=== PATIENT | male | born 1960 | race Caucasian/White ===

== ENCOUNTER 2020-12-23 17:08 | Inpatient (IN) | payer OTHER, SELFPAY ==
[2020-12-23] VITALS (9 sets, daily range): BP systolic 115–182; BP diastolic 55–102; PULSE 88–98; RESP 18–22; TEMP 35.7–36.6; O2SAT 94–97; BMI 47.0
--- NOTE | ~2020-12-23 | XR_ITS ---
EXAMINATION: XR chest 2V DATE: 12/23/2020 17:41 INDICATION: Sternal chest pain TECHNIQUE: PA and lateral views of the chest are obtained. COMPARISON: None available FINDINGS: There are minimal opacities of the lung bases. There is no pleural effusion or pneumothorax . The cardiomediastinal silhouette is normal. There is moderate thoracic spondylosis. IMPRESSION: 1. Minimal opacities of the lung bases, consistent with atelectasis versus pneumonia. Reviewed, dictated and finalized at location A. IMPRESSION: 1. Minimal opacities of the lung bases, consistent with atelectasis versus pneu monia.
--- NOTE | 2020-12-23 17:12 | ECG_ITS ---
Measurements Intervals [place] Rate: 90 P: 47 DE: 180 QRS: 68 QRSD: 152 T: -7 QT: 392 QTc: 481 Interpretive Statements SINUS RHYTHM RIGHT BUNDLE BRANCH BLOCK INFERIOR INFARCT, AGE INDETERMINATE ABNORMAL ECG Electronically Signed On 12-23-2020 20:15:08 CDT by Eros Smith D.O.
[2020-12-23 17:33] LABS: Basophils Percent Auto 0.5 % (0.2-1.2); Eosinophils Absolute Auto 0.1 K/mm3 (0-0.3); Eosinophils Percent Auto 0.7 % (0-4.4); Hematocrit 51.1 % (42.0-52.0); Hemoglobin 17.2 g/dL (14.0-18.0); Immature Granulocyte Absolute 0.02 K/mm3 (0.00-0.031); Immature Granulocyte Percent A 0.2 % (0-0.5); Lymphocytes Absolute Auto 1.41 K/mm3 (0.9-3.2); Lymphocytes Percent Auto 16.2 % (18.3-44.2); Mean Corpuscular HGB Conc 33.7 g/dl (32-36); Mean Corpuscular Hemoglobin 29.6 pg (26-34); Mean Platelet Volume 8.9 fl (7.4-10.4); Monocytes Absolute Auto 0.6 K/mm3 (0.1-0.6); Monocytes Percent Auto 6.5 % (2.6-8.5); Neutrophils Absolute Auto 6.6 K/mm3 (1.3-6.7); Neutrophils Percent Auto 75.9 % (45.5-73.1); Platelet Count Result 182 k/mm3 (150-375); Red Blood Count 5.81 M/mm3 (4.6-6.20); Red Cell Distribution Width 12.9 % (11.5-14.5); White Blood Count 8.7 K/mm3 (4.5-10.0)
[2020-12-23 17:47] LABS: INR 0.9; Prothrombin Time 12.2 Seconds (11.1-14.7)
[2020-12-23 17:48] LABS: Partial Thromboplastin Time 27.8 SECONDS (22.3-36.8)
[2020-12-23 17:53] LABS: Anion Gap 11 mmol/L (8-16); Blood Urea Nitrogen 27 mg/dL (9-20); Calcium 9.6 mg/dL (8.4-10.2); Carbon Dioxide 29 mmol/L (22-30); Chloride 98 mmol/L (98-107); Estimated CRCL calculation 67 ml/min; Estimated Glomerular Filt Rate 56; Glucose 157 mg/dL (65-110); Potassium 4.1 mmol/L (3.4-5.0); Sodium 138 mmol/L (137-145)
[2020-12-23 18:09] LABS: Troponin I 0.589 ng/mL (0.000-0.034)
--- NOTE | 2020-12-23 18:37 | ECG_ITS ---
Measurements Intervals [place] Rate: 94 P: 3 WA: 170 QRS: -3 QRSD: 156 T: 78 QT: 391 QTc: 491 Interpretive Statements SINUS RHYTHM RIGHT BUNDLE BRANCH BLOCK HIGH LATERAL INFARCT, AGE INDETERMINATE ABNORMAL ECG Electronically Signed On 12-23-2020 20:15:43 CDT by Eros Smith D.O.
--- NOTE | 2020-12-23 18:45 | ED.CHESTPAIN ---
HPI - Chest Pain General Chief Complaint: Chest Pain Stated Complaint: ELEVATED BP, CHEST PAIN Time Seen by Provider: 12/23/20 18:23 Source: patient History of Present Illness HPI narrative: Patient presents with chest pain and hypertension. Patient ports been previously diagnosed with hypertension was on lisinopril but it made him cough so he stopped taking his medication. Over the past 24 hours he noted a burning sensation in his chest as well as a pounding in his head he took some Tums alleviates his symptoms but they continue return so he came to the ER for evaluation. Reports mild shortness of breath over the past several months no acute changes no shortness of breath over the past 24 hours. He denies any nausea or vomiting denies any lightheadedness Related Data Allergies Allergy/AdvReac Type Severity Reaction Status Date / Time Penicillins Allergy Hives Verified 12/23/20 18:38 Review of Systems Review of Systems: CONSTITUTIONAL: Denies fever, chills, or sweats. EYES: Denies visual changes, redness, or discharge. ENT: Denies rhinorrhea, congestion, sore throat, or otalgia. CARDIOVASCULAR: Denies palpitations, or edema. RESPIRATORY: Denies cough or dyspnea. GASTROINTESTINAL: Denies abdominal pain, nausea, vomiting, or diarrhea. GENITOURINARY: Denies dysuria or hematuria. SKIN: Denies rash or itching. MUSCULOSKELETAL: Denies back pain, joint pain, or myalgia. NEUROLOGIC: Denies headache, numbness, dizziness, or weakness. PSYCHIATRIC: Denies anxiety or depression. All systems reviewed & are unremarkable except as noted in HPI and below Exam Narrative: GENERAL: Well-appearing, well-nourished, and in no acute distress. HEAD: Normocephalic, atraumatic. EYES: PERRLA and EOMI. ENT: Nares clear, no rhinorrhea or epistaxis. Mucous membranes moist. NECK: Supple. No masses. No JVD CHEST: Clear to auscultation. No respiratory distress. No wheezes rales or rhonchi HEART: Regular rate and rhythm. No murmur heard. Normal peripheral pulses. ABDOMEN: Soft, nontender, nondistended, normal active bowel sounds. EXTREMITIES: Normal range of motion. No edema. SKIN: Warm, dry, no rash. NEURO: No focal deficits. Alert and oriented x3. PSYCH: Normal mood and affect. Course Reevaluation(s) Reevaluation #1: Results and plan reviewed with patient. Patient is resting comfortably is currently without pain. Given elevated troponin no priors for comparison is admitted for NSTEMI. Patient comfortable inpatient plan. Date: 12/23/20 Time: 19:11 Vital Signs Vital signs: Vital Signs Temperature 35.7 C L 12/23/20 17:19 Pulse Rate 88 12/23/20 17:19 Respiratory Rate 18 12/23/20 17:19 Blood Pressure 156/102 H 12/23/20 17:19 Pulse Oximetry 97 12/23/20 17:19 Temperature 35.7 C L 12/23/20 17:19 Pulse Rate 97 12/23/20 19:51 Respiratory Rate 20 12/23/20 19:51 Blood Pressure 182/92 H 12/23/20 19:51 Pulse Oximetry 95 12/23/20 19:51 MDM - Chest Pain MDM Narrative Medical decision making narrative: Patient presents with burning sensation in his chest over the past 24 hours. Patient does have a history of hypertension is not on any medications patient is not see a primary care physician regularly. Labs and imaging obtained. EKG showing a right bundle branch block no priors for comparison labs notable for elevated troponin again no priors for comparison. Chest x-ray was clinically unremarkable. Given lab abnormalities patient was admitted for NSTEMI. Heparin was initiated in the ER. Patient reports he took full dose aspirin at home prior to ER evaluation. Lab Data Result diagrams: 12/23/20 17:19 12/23/20 17:19 Labs: Lab Results 12/23/20 12/23/20 12/23/20 Range/Units 17:19 17:19 17:19 WBC 8.7 (4.5-10.0) K/mm3 RBC 5.81 (4.6-6.20) M/mm3 Hgb 17.2 (14.0-18.0) g/dL Hct 51.1 (42.0-52.0) % MCV 88.0 (80-100) fl MCH 29.6 (26-34) pg MCHC 33.7 (32-36) g/dl
[2020-12-23] MEDS: HEPARIN SODIUM 5,000 UNITS/ML VIAL 4000 UNITS IV PUSH (19:04)
[2020-12-23] MEDS: HEPARIN SOD/D5W 100 UNITS/ML 25,000 UNITS/250 ML BAG 10 UNITS IV CONT (19:10)
[2020-12-23 19:19] LABS: INR 0.9; Prothrombin Time 11.8 Seconds (11.1-14.7)
[2020-12-23 19:20] LABS: Partial Thromboplastin Time 27.3 SECONDS (22.3-36.8)
--- NOTE | 2020-12-23 19:47 | PM.IMHP ---
H&P: HPI History of Present Illness Date/Time: 12/23/20 19:47 Chief Complaint: High blood pressure Narrative: This is a 60-year-old male with past medical history significant for tobacco dependence, morbid obesity, hypertension, undiagnosed sleep apnea according to patient has apnea periods at nighttime. Patient presented to the emergency room due to a pounding headache shortness of breath and chest pain initially he thought it was related to indigestion he took Tums then he decided to check his blood pressure and his systolic was in the 200's. Emergency room patient was found to have elevated troponin and he has been started in heparin drip. Patient denies any pounding in his chest, any shortness of breath, cough, sputum production, chills, fevers, rigors, nausea, vomiting, diarrhea, abdominal pain, leg swelling, PND or orthopnea. He quit smoking a few months ago. He used to be on lisinopril but he had cough and was taking off of it. Patient has been admitted for further management, treatment and evaluation. Review of Systems Review of Systems: High blood pressure chest pain and shortness of breath Constitutional: Constitutional: Denies chills, Denies fatigue, Denies fever(s), Denies lethargy, Denies malaise and Denies weakness Eyes: Eyes: Denies change in vision ENT: Denies dysphagia, Denies dizziness, Denies nasal congestion, Denies nasal discharge, Denies nasal obstruction, Denies neck pain and Denies tinnitus Cardiovascular: Cardiovascular: Reports chest pain, Denies chest pain with activity, Denies diaphoresis, Denies edema, Denies irregular heart rhythm, Denies claudication, Denies leg edema, Denies lightheadedness, Denies radiating jaw, neck or arm pain, Denies palpitations, Reports dyspnea, Denies dyspnea on exertion, Denies orthopnea and Reports paroxysmal nocturnal dyspnea Respiratory: Respiratory: Reports cough Gastrointestinal: Gastrointestinal: Denies constipation, Denies dysphagia, Denies dyspepsia, Denies heartburn, Denies diarrhea, Denies nausea and Denies vomiting Genitourinary: Genitourinary: Reports no additional male genitourinary complaints Musculoskeletal: Musculoskeletal: Reports no additional musculoskeletal complaints Integumentary/Breasts: Skin/Breast: Reports system reviewed and no additional complaints, except as docu Neurologic: Reports system reviewed and no additional complaints, except as documented Psychiatric: Psychiatric: Reports no additional psychiatric complaints Endocrine: Endocrine: Reports no additional endocrine complaints Hematologic/Lymphatic: Hematologic/Lymphatic: Reports no additional hematologic/lymphatic complaints Allergic/Immunologic: Allergic/Immunologic: Reports no additional allergic/immunologic complaints [facility] Social History Social History Smoking status: Former smoker Alcohol intake: never Substance use: never Spiritual care concerns: No Meds Home Medications and Allergies Home Medications Medication Instructions Recorded Confirmed Type No Home Medications 12/23/20 12/23/20 History Allergies Allergy/AdvReac Type Severity Reaction Status Date / Time Penicillins Allergy Hives Verified 12/23/20 18:38 Vital Signs Vital Signs - 24 hr 12/23/20 17:19 12/23/20 19:03 Temperature 96.3 F L Pulse Rate 88 93 Respiratory Rate 18 19 Blood Pressure 156/102 H 152/100 H Pulse Oximetry 97 95 Exam Narrative: Patient is laying in gurney Const: General: cooperative, comfortable, no acute distress, well developed, alert, awake, Physically active and other (Well-appearing); No in distress Nutritional Appearance: obese morbidly obese Orientation/consciousness: patient oriented x3 HENMT: Head: normal to inspection, normocephalic and atraumatic Ears: hearing grossly normal bilaterally General nose exam: Normal external nose present Face and sinus: normal facial exam Mouth: Yes Normal or
[2020-12-23 20:48] LABS: Basophils Absolute Auto 0.1 K/mm3 (0.0-0.1); Basophils Percent Auto 0.5 % (0.2-1.2); Eosinophils Absolute Auto 0.1 K/mm3 (0-0.3); Hematocrit 49.9 % (42.0-52.0); Hemoglobin 17.1 g/dL (14.0-18.0); Immature Granulocyte Absolute 0.03 K/mm3 (0.00-0.031); Immature Granulocyte Percent A 0.3 % (0-0.5); Lymphocytes Absolute Auto 1.59 K/mm3 (0.9-3.2); Lymphocytes Percent Auto 16.7 % (18.3-44.2); Mean Corpuscular HGB Conc 34.3 g/dl (32-36); Mean Corpuscular Hemoglobin 30.1 pg (26-34); Mean Corpuscular Volume 87.7 fl (80-100); Mean Platelet Volume 8.9 fl (7.4-10.4); Monocytes Absolute Auto 0.6 K/mm3 (0.1-0.6); Monocytes Percent Auto 6.6 % (2.6-8.5); Neutrophils Absolute Auto 7.1 K/mm3 (1.3-6.7); Neutrophils Percent Auto 74.9 % (45.5-73.1); Platelet Count Result 168 k/mm3 (150-375); Red Blood Count 5.69 M/mm3 (4.6-6.20); Red Cell Distribution Width 12.9 % (11.5-14.5); White Blood Count 9.5 K/mm3 (4.5-10.0)
--- NOTE | 2020-12-23 22:59 | ADMGEN ---
This patient, Martin Faye, was admitted to IMU Room 214-01. Patient/family oriented to hospital policies and general routines including ID bracelet, bed and alarms, visiting hours, pain management, procedures, bathroom and other care routines, personal items, smoking policy, room service/diet, and visiting hours. Information on how to activate the Rapid Response Team has been discussed. Patient/Family are encouraged to report perceived risks to care and to ask questions if they do not understand what they are told or what they should do.
[2020-12-23] MEDS: carvediloL 3.125 MG TABLET PO (23:20)
[2020-12-24] VITALS (25 sets, daily range): BP systolic 116–148; BP diastolic 71–88; PULSE 75–92; RESP 15–22; TEMP 35.8–36.8; O2SAT 93–98
--- NOTE | 2020-12-24 | ECHO_ITS ---
Patient Info Name: Martin Faye Age: 60 years : 1960 Gender: Male Ht: 67 in Wt: 300 lbs BSA: 2.61 m2 HR: 79 bpm BP: 148 / 80 mmHg Heart Rhythm: Sinus Rhythm Technical Quality: Fair Exam Date: 12/24/2020 2:45 PM Exam Location: [facility] Card Pulmonary Patient Status: Inpatient Admit Date: 12/24/2020 Staff Ordering Physician: Mala Cee MD Fishing Tool Technician [employer]: Christal Delgado RDCS Attending Provider: Elda Lewis PA-C Referring Physician: Jaye WHITNEY; Exam Type: CA echo dop color flow w con Study Info Indications - S/P STEMI Complete two-dimensional, color flow and Doppler transthoracic echocardiogram is performed with contrast to opacify the left ventricle and to improve the deliniation of the left ventricle endocardial borders. Contrast/Agitated Saline Contrast/Ag. Saline: Definity Amount: 2.00 ml Administered By: Naina Harris RN Existing IV Access: Yes IV Access Condition: patent with no signs of infiltration Summary 1. There is severe left ventricular enlargement. Normal wall thickness. There is akinesis of the basal and mid inferoseptal jarquin, and severe hypokinesis of the lateral wall. Ejection fraction is 41%. Grade 2 diastolic dysfunction is present. 2. No significant valve disease. 3. Pulmonary pressure cannot be estimated by this study. 4. Normal sinus rhythm. 5. Technically difficult study. Definity echo contrast used. Left Ventricle Left ventricular chamber dimension is severely enlarged. Left ventricular systolic function is moderately reduced, estimated at Empty. There is no increased left ventricular wall thickness. Left ventricular septal wall motion is normal. The left ventricular diastolic function is grade II diastolic dysfunction. Right Ventricle Right ventricular chamber dimension is normal. Right ventricular systolic function is normal. Left Atria Left atrial chamber dimension is normal. Right Atria Right atrial chamber dimension is normal. Aortic Valve The aortic valve is trileaflet. There is no aortic valve sclerosis. There is no aortic valve stenosis. There is trace aortic valve regurgitation. Pulmonic Valve The pulmonic valve is normal. There is no pulmonic valve stenosis. There is no pulmonic regurgitation. Mitral Valve The mitral valve has normal leaflets. There is no mitral valve stenosis. There is trace mitral valve regurgitation. Tricuspid Valve The tricuspid valve leaflets are normal. There is no significant tricuspid valve stenosis. There is no tricuspid valve regurgitation. No pulmonary hypertension, estimated pulmonary arterial systolic pressure is Empty. Pericardium/Pleural The pericardium appears normal. There is no pericardial effusion. Inferior Vena Cava Not well visualized inferior vena cava with >50% collapse upon inspiration consistent with Empty right atrial pressure, 5 mmHg. Aorta The aortic root size at the sinus of Valsalva is normal. The prox ascending aorta size is not well visualized. The abdominal aorta size is not well visualized. Left Ventricular Outflow Tract Name Value Normal LVOT 2D LVOT Diameter 2.05 c
[2020-12-24 07:30] LABS: Basophils Percent Auto 0.4 % (0.2-1.2); Eosinophils Absolute Auto 0.1 K/mm3 (0-0.3); Hematocrit 49.5 % (42.0-52.0); Hemoglobin 16.6 g/dL (14.0-18.0); Immature Granulocyte Absolute 0.04 K/mm3 (0.00-0.031); Immature Granulocyte Percent A 0.5 % (0-0.5); Lymphocytes Absolute Auto 1.36 K/mm3 (0.9-3.2); Lymphocytes Percent Auto 17.5 % (18.3-44.2); Mean Corpuscular HGB Conc 33.5 g/dl (32-36); Mean Corpuscular Hemoglobin 29.7 pg (26-34); Mean Corpuscular Volume 88.7 fl (80-100); Mean Platelet Volume 8.8 fl (7.4-10.4); Monocytes Absolute Auto 0.6 K/mm3 (0.1-0.6); Monocytes Percent Auto 7.1 % (2.6-8.5); Neutrophils Absolute Auto 5.7 K/mm3 (1.3-6.7); Neutrophils Percent Auto 73.5 % (45.5-73.1); Platelet Count Result 158 k/mm3 (150-375); Red Blood Count 5.58 M/mm3 (4.6-6.20); Red Cell Distribution Width 12.9 % (11.5-14.5); White Blood Count 7.8 K/mm3 (4.5-10.0)
[2020-12-24] MEDS: carvediloL 3.125 MG TABLET PO (08:25)
[2020-12-24 09:00] LABS: Partial Thromboplastin Time 92.1 SECONDS (22.3-36.8)
--- NOTE | 2020-12-24 09:06 | PM.CNCAR ---
Assessment and Plan Assessment and plan (1) Non-ST elevation [place] (NSTEMI): Code(s): I21.4 - Non-ST elevation (NSTEMI) myocardial infarction Status: Acute Assessment and Plan: Patient presents with a non-STEMI, troponins of 2.5. One EKG showed some Q-waves inferiorly but neither EKG shows acute ischemic changes. No further chest discomfort while on heparin drip. Reviewed NSTEMI, probable CAD, risk of larger W[place], and recommended cardiac catheterization. Reviewed possible risks and complications with patient including breathing problems, bleeding problems, blood vessel problems, unanticipated surgery, allergic reactions, kidney problems, CVA, [place], and among others. Discussed possibility of stenting and possible need for DAPT. Discussed the possibility that if DAPT is interrupted stent thrombosis can occur resulting in heart attack and . Patient understands risks and desires to proceed. Check lipid panel. Repeat EKG. (2) Uncontrolled hypertension: Code(s): I10 - Essential (primary) hypertension Status: Acute Assessment and Plan: Counseled patient on blood pressure goals, untoward outcomes with uncontrolled blood pressure, recommended further tension to blood pressure. Will add beta-temitope and losartan since he has a Armando allergy. (3) Elevated blood sugar: Code(s): R73.9 - Hyperglycemia, unspecified Status: Acute Assessment and Plan: States he checks blood sugar at home, runs around 100. Will check an A1c. (4) Morbid obesity: Code(s): E66.01 - Morbid (severe) obesity due to excess calories Status: Acute (5) Decreased pulse: Code(s): R09.89 - Other specified symptoms and signs involving the circulatory and respiratory systems Status: Acute Assessment and Plan: I could not palpate pulses in the right foot but there is no history of claudication. History of Present Illness History of Present Illness Consult date/time: 12/24/20 09:06 Consult reason: Other (NSTEMI) Reason For Visit: nstemi Narrative: Martin Faye a 60-year-old male with history of untreated hypertension who was admitted with chest pain. We were asked to see him at the request of the hospitalist for advice and opinion regarding his non-STEMI. The patient has been having chest burning for the last 2 days. He woke up Monday morning around 2:00 a.m. with chest burning, took some Prilosec and that resolved. Yesterday afternoon he had more chest burning and pressure which he thought was GERD, took a couple more antacids and it resolved. He has had some shortness of breath for about a year with ROSARIO. He also has a history of hypertension. He took lisinopril in the past but it caused a cough so stopped it. He has been watching his blood pressure which was running 142/75 in the spring and recently 190-200/90-100 associated with head pressure. He called a telemedicine service who suggested he go to the emergency room. He was found have elevated troponins has been placed on heparin overnight. No diabetes. Quit smoking 2 years ago. Unknown cholesterol level. No bleeding problems. No claudication. No primary care doctor. Review of Systems Constitutional: Constitutional: Denies fatigue and Denies lethargy ENT: Denies epistaxis Cardiovascular: Cardiovascular: Reports chest pain, Reports pedal edema, Reports leg edema and Denies palpitations Respiratory: Respiratory: Reports dyspnea on exertion Gastrointestinal: Gastrointestinal: Denies abdominal pain, Denies hematochezia and Denies hematemesis Genitourinary: Genitourinary: Denies hematuria Musculoskeletal: Musculoskeletal: Denies arthralgias Integumentary/Breasts: Skin/Breast: Denies rash Neurologic: Denies confusion Psychiatric: Psychiatric: Denies behavioral changes
--- NOTE | 2020-12-24 09:18 | ECG_ITS ---
Measurements Intervals [place] Rate: 85 P: 56 CO: 177 QRS: 65 QRSD: 166 T: 7 QT: 413 QTc: 493 Interpretive Statements SINUS RHYTHM RIGHT BUNDLE BRANCH BLOCK INFERIOR INFARCT, AGE INDETERMINATE ABNORMAL ECG Electronically Signed On 12-24-2020 10:02:51 CDT by Eros Smith D.O.
--- NOTE | 2020-12-24 09:23 | WPDMODSED ---
Moderate Sedation Note-Pt Data Patient Data Diagnosis: NSTEMI Present Complaint: Chest pain Procedure to be performed/Plan: Conscious sedation Left heart catheterization Allergies Allergy/AdvReac Type Severity Reaction Status Date / Time Penicillins Allergy Hives Verified 12/23/20 18:38 Home Medications Medication Instructions Recorded Confirmed Type No Home Medications 12/23/20 12/23/20 History Current Medications: Active Medications Carvedilol (Carvedilol 3.125 Mg Tablet) 3.125 mg PO Q12HR CALLIE Last Admin: 12/24/20 08:25 Dose: 3.125 mg Documented by: Heparin Sodium (Porcine) (Heparin Sodium 5,000 Units/Ml Vial) 4,000 units IV PUSH PRN PRN PRN Reason: aPTT less than 55 seconds Heparin Sodium (Porcine) (Heparin Sodium 5,000 Units/Ml Vial) 3,500 units IV PUSH PRN PRN PRN Reason: aPTT 55 - 70 seconds Heparin Sodium/Dextrose (Heparin Sodium/D5w 100 Units/Ml) 25,000 units in 250 mls @ 12 mls/hr IV CONT .[id number] CALLIE; Protocol Last Titration: 12/24/20 08:45 Dose: 1,200 units/hr, 12 mls/hr Documented by: Acetaminophen (Ofirmev 1,000 Mg Ivpb) 1,000 mg in 100 mls @ 400 mls/hr IVPB Q6H PRN PRN Reason: Mild Pain (1-3) or Fever Stop: 12/24/20 19:12 Sodium Chloride (Normal Saline Iv) 500 mls @ 100 mls/hr IV CONT .Q5H CALLIE Sedation/Anesthesia: No previous sedation/anesthesia problems (including family history). [facility] Past Medical History Medical History (Updated 12/24/20 @ 09:21 by Mala Cee MD) History of DVT (deep vein thrombosis) 2008, treated with blood thinners Hypertension Surgical History Surgical History (Updated 12/24/20 @ 09:12 by Mala Cee MD) H/O knee surgery torn meniscus Family History Family History (Updated 12/24/20 @ 09:13 by Mala Cee MD) Father Carcinoma of colon Heart disease History of pacemaker and coronary stents Mother Dementia Social History Social History (Updated 12/24/20 @ 09:14 by Mala Cee MD) Social History: , 2 children. 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 Smoking status: Former smoker Alcohol intake: never Substance use: never Spiritual care concerns: No Mod Sed Physical Exam Physical Exam Pre Procedural Exam: Normal: Appearance, Eyes, Ears, Nose, Neck, Throat, Airway, Lungs, Heart Size, Heart Rate, Heart Rhythm, Neuro Exam, Abdomen (Obese), Liver, Extremities (Unable to palpate pulses in the right foot) and Skin Hours since solid foods: 12 Hours since liquid intake: 12 Mallampati Classification: class III Internal Medicine - PN: Obj Da Vital Signs Vital Signs: Vital Signs - 24 hr 12/23/20 17:19 12/23/20 19:03 12/23/20 19:51 Temperature 96.3 F L Pulse Rate 88 93 97 Respiratory Rate 18 19 20 Blood Pressure 156/102 H 152/100 H 182/92 H Pulse Oximetry 97 95 95 12/23/20 21:05 12/23/20 22:00 12/23/20 22:45 Temperature 97.8 F Pulse Rate 95 92 90 Respiratory Rate 19 22 H Blood Pressure 115/85 133/55 L Pulse Oximetry 97 94 12/23/20 23:20 12/23/20 23:47 12/23/20 23:49 Temperature Pulse Rate 92 98 98 Respiratory Rate 19 Blood Pressure Pulse Oximetry 97 12/24/20 02:00 12/24/20 02:53 12/24/20 04:00 Temperature 97.3 F L Pulse Rate 84 92 86 Respiratory Rate 20 20 Blood Pressure 118/81 Pulse Oximetry 94 94 12/24/20 06:00 12/24/20 07:32 Temperature 97.9 F Pulse Rate 84 85 Respiratory Rate 18 Blood Pressure 132/83 Pulse Oximetry 95 Meds/Results Medications: Active Medications Generic Name Dose Route Start Last Admin Trade Name Freq PRN Reason Stop Dose Admin Carvedilol 3.125 mg 12/24/20 09:00 12/24/20 08:25 Carvedilol 3.125 Mg Tablet PO 3.125 mg Q12HR CALLIE Administration Heparin Sodium (Porcine) 4,000 units 12/23/20 18:45 Heparin Sodium 5,000 Units/Ml Vial IV PUSH PRN PRN aPTT less than 55 seconds Heparin Sodium (Porcine) 3,500 unit
--- NOTE | 2020-12-24 09:24 | WPDHPUPDATE1 ---
History and Physical Update Update Date/Time: 12/24/20 09:24 History and Physical has been reviewed, including an updated exam of the patient. There are NO changes in the patient's condition. Risks, benefits, and alternatives have been discussed and questions answered. Patient agrees to proceed with procedure.
[2020-12-24 10:07] LABS: Cholesterol 180 mg/dL (0-200); HDL Direct 33 mg/dL; Triglycerides 210 mg/dL (<150)
[2020-12-24 10:18] LABS: LDL Cholesterol Direct 120 mg/dL
[2020-12-24 10:20] LABS: Hemoglobin A1C 7.8 % (<5.7)
--- NOTE | 2020-12-24 11:54 | P.PCNCC_ITS ---
Cardiac Cath Procedure Note Date of procedure:: 12/24/20 Performing physician:: Karen Kim MD date of service 12/24/2020 Indication:: NSTEMI Brief clinical history:: this 60-year-old patient was admitted to the hospital with elevated blood pressure, chest pain and was found to have elevated troponins. He underwent cardiac catheterization by Dr. ortiz and found a high-grade stenosis obtuse marginal branch. I was called to intervene on the obtuse marginal branch. His right coronary artery is totally occluded with [id number] collaterals. Procedure Procedure performed:: 1- moderate sedation that started 12:05 p.m. and ended at 12:25 p.m. with total duration 20 minutes using 1 mg of Versed and 25 mcg fentanyl. The registered nurse was Deidra Dumont. 2- Stenting of obtuse marginal branch using Orsiro 3x15 SANTOS. 2- right common femoral artery angiogram. 3- deployment 6 [place] Angio-Seal. Access site:: right common femoral artery. Estimated blood loss:: 10 cc Procedure note:: the right groin femoral sheath was upgraded to long 6 [place] sheath and then after that we went with a guide catheter CLS 3.5 seconds and lesion the left main. The Coronaryluge wire was advanced to distal OM branch. balloon angioplasty done using 3 x 15 compliant balloon with inflation done under nominal pressure for 25 seconds. Then deployed a drug-eluting stent Orsiro 3x15 with deployment done corresponding to size 3.14mm. this was done for about 25 seconds. then after that deployed 6 [place] Angio-Seal. Findings:: high-grade stenosis mid obtuse marginal branch about 90%. - right common femoral artery angiogram shows no significant disease in the right common femoral artery. Assessment and Plan Additional Plan 1- Continue aspirin and Brilinta. 2- aggressive risk factor modification for CAD.
--- NOTE | 2020-12-24 13:17 | PM.OP ---
Procedure Note - Brief Procedure Note - Brief Date of procedure: 12/24/20 Pre-op diagnosis: nstemi Post-op diagnosis: same Procedure performed: Conscious sedation Left heart Anesthesia: local ( with conscious sedation) Surgeon: Mala Cee MD Findings: Chronic occlusion of the proximal right coronary artery which fills by collaterals 95-99% stenosis large 1st obtuse marginal Moderate reduction in left ventricular function Case turned over to Dr. Kim who stented the obtuse marginal.
--- NOTE | 2020-12-24 13:17 | PC.NURSE ---
This patient, Martin Faye, was transferred to [facility] on 12/24/20 at 1308. Personal belongings sent with patient. Report given to Deidra. Appropriate documentation sent with patient.
--- NOTE | 2020-12-24 13:18 | WPDCARDPROC ---
Cardiac Cath Procedure Note Date of procedure:: 12/24/20 Performing physician:: Mala Cee MD Indication:: NSTEMI Brief clinical history:: 60-year-old male with untreated hypertension admitted with intermittent substernal burning and found have a non-STEMI with troponin of 2.5. EKG showed an old inferior ID. Procedure Procedure performed:: Procedure: 1. Conscious sedation 2. Left heart catheterization 3. Selective Coronary angiography 4. Left ventriculography Sedation/Medication given:: Conscious sedation: The patient has no known prior history of adverse affects of conscious sedation. Oropharynx was clear. The patient is deemed a good candidate for conscious sedation. Conscious sedation began at: 1107 Conscious sedation ended at: 1228 Total conscious sedation time: 81 minutes Medications:Versed 2 mg IV push, fentanyl 125 mcg IV push (Then Dr. Kim administered an additional 2 mg Versed and 50 mcg fentanyl when he assumed care of [facility] patient) The patient had continuous hemodynamic monitoring, and was also continuously monitored by: Deidra Vigil RN The patient tolerated conscious sedation well. Access site:: Right femoral artery Estimated blood loss:: 10 cc Procedure note:: Catheters: 5 Venezuelan arterial sheath, 5 Venezuelan 4 cm right and left Sven catheters, 5 Venezuelan pigtail catheter, 4 Venezuelan venous sheath Detailed procedure: After informed consent the patient brought to the bolt labeler. I had hoped to use the right radial approach as the patient has morbid obesity and the femoral pulses were difficult to palpate, but the Ryan test was questionable and we were not able to find any flow through the ulnar artery by pulse oximetry. I then proceeded to use the femoral approach. The bilateral femoral areas were prepped and draped in the usual fashion. The patient received conscious sedation and local anesthesia. Because he had diminished pulses in the right foot I elected to attempt a left femoral artery puncture. However, the pulse was very difficult to palpate and after a couple of attempts using the micropuncture technique I abandoned the left side. The right femoral pulse was also quite deep and evasive. I was unable to easily puncture the right femoral artery. Vascular ultrasound did not help due to the patient's obesity. Eventually I was able to puncture the right femoral vein and I placed a 4 Venezuelan sheath in this. Moving cephalad and laterally, with a micropuncture technique I was able to puncture the right femoral artery and cannulate it with the arterial sheath. Selective Coronary angiography was performed with the coronary catheters in multiple projections. These were withdrawn. The pigtail catheter was advanced into the central circulation and left ventricle for pressure measurements and left ventriculography which was performed in the GARCIA projection. This was withdrawn. I reviewed the patient and images with Dr. Kim, and recommended to the patient we proceed with stenting of the tightly stenosed first obtuse marginal. Dr. Herrmann assumed care of the patient and the PCI is detailed in a separate report. Findings:: Left coronary artery: The left main was widely patent. The Left anterior descending was a large vessel free of significant disease. The circumflex was non dominant and gave rise to a large 1st obtuse marginal and then a small 2nd obtuse marginal. The 1st obtuse marginal had a 95-99% stenosis with haziness and slow flow, and appeared to be the culprit vessel. There were left to right collaterals noted. Right coronary artery: The dominant right coronary artery was occluded proximally. There appeared to be some complex disease in that area. There is a small amount of right to right collateralization. Left ventriculogram: Left ventriculography revealed some left ventricular enlargement. There is considerable ventricular ectopy but it appeared that the inferior wall was akine
--- NOTE | 2020-12-24 14:41 | PC.NURSE ---
On 12/24/20, the student, [Anitha Montano], provided care and completed [facility] documentation on this patient. I have reviewed the student's documentation and agree with the findings.
[2020-12-24] MEDS: SODIUM CHLORIDE 0.9% IV 1,000 ML 125 ML IV CONT (14:50)
--- NOTE | 2020-12-24 14:51 | PM.IMPN ---
Progress Note: A&P Assessment and Plan (1) Non-ST elevation PA (NSTEMI): Code(s): I21.4 - Non-ST elevation (NSTEMI) myocardial infarction Status: Acute Assessment and Plan: Patient is a 60-year-old man with a history of tobacco dependence, morbid obesity, who presented to the ER with symptoms chest pain, shortness of breath and ?pounding headache?. Patient reported taking some Tums with mild improvement of his chest discomfort. He was checking his blood pressure at home and found to be in the 200 systolic. He decided to come to the emergency room for further evaluation monitoring. Initial vitals showed elevated blood pressure 156/102, heart rate 83 beats per minute, afebrile, normal oxygenation on room air. Labs showed normal CBC, normal differential, normal coag panel, creatinine 1.3, BUN 27, glucose elevated at 157, troponin elevated 0.589, repeat troponin went up to 2.450. Chest x-ray showed atelectasis. The patient was admitted into the hospital for an NSTEMI with a cardiac consultation and an IV heparin drip. Cardiology evaluated the patient and took him to the dental laboratory worker and found him to have high-grade stenosis with 90% blockage of his mid obtuse marginal branch. Cardiology recommends to continue aspirin and Brilinta. Aggressive risk factor modifications for CAD. Fasting lipid panel showed elevated triglycerides at 210, LDL 120 which now needs to be less than 70 due to CAD. Statin therapy was started Patient found to have diabetes with a hemoglobin A1c of 7.8%. Will check glucose a.c. HS. Sliding scale insulin. Hypoglycemic protocol in place. Will educate the patient about diabetes. Creatinine high normal at 1.3. Could be secondary to untreated diabetes. He is receiving IV fluids after his cardiac catheterization. Will repeat a BMP in the morning. Continue monitoring. Appreciate cardiology's input. (2) Chest pain: Qualifiers: Chest pain type: unspecified Qualified Code(s): R07.9 - Chest pain, unspecified Code(s): R07.9 - Chest pain, unspecified Status: Acute Assessment and Plan: See NSTEMI above. (3) Uncontrolled hypertension: Code(s): I10 - Essential (primary) hypertension Status: Acute Assessment and Plan: Patient was started on losartan and Coreg for blood pressure control and CAD. Continue monitoring blood pressure with these new medications. Make adjustments if needed. Appreciate cardiology's input. (4) Morbid obesity with BMI of 45.0-49.9, adult: Code(s): E66.01 - Morbid (severe) obesity due to excess calories; Z68.42 - Body mass index [BMI] 45.0-49.9, adult Status: Acute Assessment and Plan: Educate the patient on diet changes, exercise, weight loss. (5) Diabetes mellitus: Code(s): E11.9 - Type 2 diabetes mellitus without complications Status: Acute Assessment and Plan: Patient's glucose is elevated on arrival and hemoglobin A1c is 7.8%. He has never been told he has a diabetic is not currently on any medications. Will consult senior health educator and consider starting on glimepiride vs Metformin upon discharge. Concern with creatinine at 1.3. Time Spent With Patient Time with patient: 25 - 35 minutes Subjective Date/time seen: 12/24/20 14:51 Interval history: Date of service 12/24/2020: Review of Systems Review of Systems: All systems reviewed & are unremarkable except as noted in HPI and below Exam Narrative: General: 60-year-old man laying flat in bed. Appears comfortable. In no acute distress. Skin: No jaundice or cyanosis. Good skin turgor. Neck: Full range of motion. Supple. Nontender. Respiratory: Lungs are clear to auscultation
[2020-12-24] MEDS: PERFLUTREN LIPID MICROSPHERES 1.5 ML VIAL DILUTED TO 10 ML TOTAL VOLUME IV PUSH (15:00)
[2020-12-24 15:16] LABS: Glucose Point of Care 128 mg/dl (65-105)
--- NOTE | 2020-12-24 15:18 | PC.NURSE ---
Message left to the medical educator's phone but voicemail stated she would not be back until MondayDec 28.
[2020-12-24] MEDS: carvediloL 6.25 MG TABLET PO (21:07)
[2020-12-24] MEDS: TICAGRELOR 90 MG TABLET PO (21:08)
[2020-12-24 21:12] LABS: Glucose Point of Care 126 mg/dl (65-105)
[2020-12-25] VITALS (8 sets, daily range): BP systolic 105–138; BP diastolic 69–97; PULSE 74–85; RESP 16–22; TEMP 35.6–36.1; O2SAT 94–96
[2020-12-25 06:37] LABS: Anion Gap 10 mmol/L (8-16); Blood Urea Nitrogen 26 mg/dL (9-20); Calcium 8.8 mg/dL (8.4-10.2); Carbon Dioxide 24 mmol/L (22-30); Chloride 103 mmol/L (98-107); Estimated CRCL calculation 83 ml/min; Estimated Glomerular Filt Rate > 60; Glucose 155 mg/dL (65-110); Potassium 4.2 mmol/L (3.4-5.0); Sodium 137 mmol/L (137-145)
--- NOTE | 2020-12-25 07:00 | ECG_ITS ---
Measurements Intervals [place] Rate: 85 P: 54 FL: 172 QRS: 75 QRSD: 162 T: -3 QT: 413 QTc: 492 Interpretive Statements SINUS RHYTHM RIGHT BUNDLE BRANCH BLOCK INFERIOR INFARCT, AGE INDETERMINATE BASELINE ARTIFACT- I, II, V1-V3 Electronically Signed On 12-25-2020 9:24:43 CDT by Eros Smith D.O.
[2020-12-25 07:59] LABS: Glucose Point of Care 151 mg/dl (65-105)
[2020-12-25] MEDS: ATORVASTATIN 40 MG TABLET PO (08:58)
[2020-12-25] MEDS: ASPIRIN 81 MG CHEWABLE TABLET PO (08:58)
[2020-12-25] MEDS: FUROSEMIDE INJ 40 MG/4 ML VIAL IV PUSH (08:58)
[2020-12-25] MEDS: carvediloL 6.25 MG TABLET PO (08:59)
[2020-12-25] MEDS: LOSARTAN POTASSIUM 50 MG TABLET PO (08:59)
[2020-12-25] MEDS: TICAGRELOR 90 MG TABLET PO (09:00)
--- NOTE | 2020-12-25 11:39 | PM.PNCARD ---
Progress Note: A&P Assessment and Plan (1) Non-ST elevation CA (NSTEMI): Code(s): I21.4 - Non-ST elevation (NSTEMI) myocardial infarction <[address] - Last Filed: 12/25/20 11:53> Status: Acute <[address] - Last Filed: 12/25/20 11:53> Assessment and Plan: Patient presents with a non-STEMI, troponins of 2.5. One EKG showed some Q-waves inferiorly but neither EKG shows acute ischemic changes. No further chest discomfort while on heparin drip. Reviewed NSTEMI, probable CAD, risk of larger CA, and recommended cardiac catheterization. Underwent PCI and stenting of the obtuse marginal. Chronic total occlusion of the right coronary artery with some collateral [id number] and right to right filling LV dysfunction with akinesis of the inferior wall and hypokinesis of the lateral wall. Ejection fraction estimated at 40-45%. GDMT including carvedilol, losartan, aspirin, Brilinta, statin <[address] - Last Filed: 12/25/20 11:53> (2) Uncontrolled hypertension: Code(s): I10 - Essential (primary) hypertension <GA[address] - Last Filed: 12/25/20 11:53> Status: Acute <GA[address] - Last Filed: 12/25/20 11:53> Assessment and Plan: Counseled patient on blood pressure goals, untoward outcomes with uncontrolled blood pressure, recommended further tension to blood pressure. Will add beta-temitope and losartan since he has a Armando allergy. <[address] - Last Filed: 12/25/20 11:53> (3) Elevated blood sugar: Code(s): R73.9 - Hyperglycemia, unspecified <GAUT[address] - Last Filed: 12/25/20 11:53> Status: Acute <[address] - Last Filed: 12/25/20 11:53> Assessment and Plan: States he checks blood sugar at home, runs around 100. Will check an A1c. <GA[address] - Last Filed: 12/25/20 11:53> (4) Morbid obesity: Code(s): E66.01 - Morbid (severe) obesity due to excess calories <GAUT[address] - Last Filed: 12/25/20 11:53> Status: Acute <[facility] - Last Filed: 12/25/20 11:53> (5) Decreased pulse: Code(s): R09.89 - Other specified symptoms and signs involving the circulatory and respiratory systems <GA[address] - Last Filed: 12/25/20 11:53> Status: Acute <GAUT[address] Last Filed: 12/25/20 11:53> Assessment and Plan: I could not palpate pulses in the right foot but there is no history of claudication. <GAUT[address] - Last Filed: 12/25/20 11:53> Subjective Date/time seen: 12/25/20 11:39 cardiology follow-up for NSTEMI <[address] - Last Filed: 12/25/20 11:53> Interval history: Date of service 12/24/2020: No acute events overnight. He is feeling well today. He denies any shortness of breath or chest pain. He has been up walking around and has not had any issues with that. Denies any dizziness, lightheadedness with ambulation. <GAUT[address] - Last Filed: 12/25/20 11:53> Review of Systems Constitutional: Constitutional: Denies fatigue and Denies lethargy <GA[address] - Last Filed: 12/25/20 11:53> ENT: Denies epistaxis <GAUT[address] - Last Filed: 12/25/20 11:53> Cardiovascular: Cardiovascular: Reports chest pain, Reports pedal edema, Reports leg edema, Denies palpitations and Reports dyspnea on exertion <GAUT[address] - Last Filed: 12/25/20 11:53> Respiratory: Respiratory: Reports dyspnea on exertion <GAUT[address] - Last Filed: 12/25/20 11:53> Gastrointestinal: Gastrointestinal: Denies abdominal pain, Denies hematochezia and Denies hematemesis <GAUT[address] - Last Filed: 12/25/20 11:53> Genitourinary: Genitourinary: Denies hematur
[2020-12-25 11:51] LABS: Glucose Point of Care 141 mg/dl (65-105)
--- NOTE | 2020-12-25 12:45 | PM.DS ---
DS: Admitting Diagnosis Discharge Date 12/25/20 Admitting Diagnosis Elevated BP/MATA DS: Discharge Diagnosis Discharge Diagnosis (1) Non-ST elevation NE (NSTEMI): Code(s): I21.4 - Non-ST elevation (NSTEMI) myocardial infarction Status: Acute Assessment and Plan: Patient is a 60-year-old man with a history of tobacco dependence, morbid obesity, who presented to the ER with symptoms chest pain, shortness of breath and ?pounding headache?. Patient reported taking some Tums with mild improvement of his chest discomfort. He was checking his blood pressure at home and found to be in the 200 systolic. He decided to come to the emergency room for further evaluation monitoring. Initial vitals showed elevated blood pressure 156/102, heart rate 83 beats per minute, afebrile, normal oxygenation on room air. Labs showed normal CBC, normal differential, normal coag panel, creatinine 1.3, BUN 27, glucose elevated at 157, troponin elevated 0.589, repeat troponin went up to 2.450. Chest x-ray showed atelectasis. The patient was admitted into the hospital for an NSTEMI with a cardiac consultation and an IV heparin drip. Cardiology evaluated the patient and took him to the labor relations worker and found him to have high-grade stenosis with 90% blockage of his mid obtuse marginal branch. Cardiology recommends to continue aspirin and Brilinta. Aggressive risk factor modifications for CAD. Fasting lipid panel showed elevated triglycerides at 210, LDL 120 which now needs to be less than 70 due to CAD. Statin therapy was started Patient found to have diabetes with a hemoglobin A1c of 7.8%. Will check glucose a.c. HS. Sliding scale insulin. Hypoglycemic protocol in place. Will educate the patient about diabetes. Started him on Metformin upon discharge. Creatinine improved to 1.1. Could be secondary to untreated diabetes. He needs a PCP and follow up with repeat labs upon discharge. Patient was started on losartan and Coreg for blood pressure control and CAD. Told to check BP twice daily (2) Chest pain: Qualifiers: Chest pain type: unspecified Qualified Code(s): R07.9 - Chest pain, unspecified Code(s): R07.9 - Chest pain, unspecified Status: Acute Assessment and Plan: See NSTEMI above. (3) Uncontrolled hypertension: Code(s): I10 - Essential (primary) hypertension Status: Acute Assessment and Plan: (4) Morbid obesity with BMI of 45.0-49.9, adult: Code(s): E66.01 - Morbid (severe) obesity due to excess calories; Z68.42 - Body mass index [BMI] 45.0-49.9, adult Status: Acute Assessment and Plan: (5) Diabetes mellitus: Code(s): E11.9 - Type 2 diabetes mellitus without complications Status: Acute Assessment and Plan: DS: Summary Hospital Course Hospital Course: See above Status at Discharge Cognitive/behavioral status at discharge: Stable, improved. Time Spent with Patient Time attestation: Total time spent providing and/or coordinating discharge services: 40 Time spent: Greater than 30 minutes Exam Narrative: General: 60-year-old man sitting up in the chair on his phone. Appears comfortable. In no acute distress. Skin: No jaundice or cyanosis. Good skin turgor. Neck: Full range of motion. Supple. Nontender. Respiratory: Lungs are clear to auscultation bilaterally. No bony chest wall tenderness. Cardiovascular: The heart has a regular rate and rhythm without murmur. No carotid bruits. Lower extremities: No lower extremity edema. Distal pulses are easily palpated. No calf tenderness to palpation. Gastrointestinal: The abdomen is soft, nontender and nondistended with active bowel sound
--- NOTE | 2020-12-25 16:05 | PC.NURSE ---
1445- All D/C instructions and follow ups reviewed with patient,all questions answered.
== END 2020-12-25 15:15 | disposition home or self-care (01) | DRG 247 ==
LOC: ANHED 19:27 → ANHIMU 21:30 → ANHCPC 12-25 10:32 → ANHIMU 12-29 10:49
PROVIDERS: Internal Medicine Cardiovascular Disease; Physician Assistant; Admitting Provider Internal Medicine; Emergency Provider Emergency Medicine; Visit Provider Internal Medicine
PROC: 4A023N7 Measurement of Cardiac Sampling and Pressure, Left Heart, Percutaneous Approach (ICD-10-PCS; CPT 93452; principal; 2020-12-24 10:30)
PROC: 027034Z Dilation of Coronary Artery, One Artery with Drug-eluting Intraluminal Device, Percutaneous Approach (ICD-10-PCS; CPT 92928; 2020-12-24 10:30)
PROC: 027034Z Dilation of Coronary Artery, One Artery with Drug-eluting Intraluminal Device, Percutaneous Approach (ICD-10-PCS; 2020-12-24 10:30)
PROC: 4A023N7 Measurement of Cardiac Sampling and Pressure, Left Heart, Percutaneous Approach (ICD-10-PCS; CPT 36140; 2020-12-24 10:30)
DX: I21.4 Non-ST elevation (NSTEMI) myocardial infarction (principal); Z68.42 Body mass index [BMI] 45.0-49.9, adult; I25.10 Atherosclerotic heart disease of native coronary artery without angina pectoris; E66.01 Morbid (severe) obesity due to excess calories; I10 Essential (primary) hypertension; I73.9 Peripheral vascular disease, unspecified; E11.65 Type 2 diabetes mellitus with hyperglycemia; R09.89 Other specified symptoms and signs involving the circulatory and respiratory systems; Z86.718 Personal history of other venous thrombosis and embolism; Z87.891 Personal history of nicotine dependence
CPT/HCPCS: 36140; 36415; 71046; 80048; 80061; 82948; 83036; 84484; 85025; 85610; 85730; 93005; 93458; 96365; 96366; 99285; A9270; C1725; C1760; C1769; C1874; C1887; C1894; C8929; C9600; G0269; G0378; J0583; J1642; J1644; J1940; J2250; J3010; J7030; J7040; Q9957

== ENCOUNTER 2021-02-05 08:14 | Outpatient (CLI) | payer OTHER, SELFPAY ==
--- NOTE | ~2021-02-05 | US_ITS ---
US art doppler w press LE BI INDICATION: Peripheral vascular disease TECHNIQUE: Segmental pressures and plethysmographic and Doppler waveforms of the brachial and lower e xtremity arteries were obtained. COMPARISON: None. FINDINGS: Right and left brachial artery pressures of 148 mm Hg and 150 to mm Hg, respectively, are concordant (normal difference <= 30 mmHg). The right ankle-brachial index (ALEJANDRINA) is 1.09 (normal >= 0.9-1.0). The right great toe-brachial index (TBI) is 0.93 (normal >= 0.60). The left ALEJANDRINA is 0.88. The left TBI is 0.74. IMPRESSION: 1. Mildly decreased left ankle brachial index, consistent with mild peripheral arterial disease. 2: Normal right ankle and toe brachial indices. Reviewed, dictated and finalized at location A. ON GILLNET VESSEL OPERATOR
--- NOTE | ~2021-02-05 | US_ITS ---
EXAMINATION: US carotid duplex BI DATE: 02/05/2021 10:45 INDICATION: Peripheral vascular disease TECHNIQUE: Grayscale, color Doppler, and pulsed Doppler images of the cervical carotid arteries were obtained. The degree of vessel stenosis is placed in one of the following categories: normal, <50%, 5 0-69%, >=70% but less than near-occlusion, near-occlusion, or total occlusion. Note that percent sten osis relative to normal distal artery lumen diameter is indirectly measured from velocity measurement s as described by Eddie, et al. Radiology 2003; 229:340-346. Notes: Normal: Peak systolic velocity <125 centimeters/sec and no plaque <50%. Peak systolic velocity <125 ( EDV <40; ICA/CCA PSV ratio <2.0; used these factors only a tandem lesions or low cardiac output or co ntralateral disease) 50-69 %: PSV 125-230 (EDV 40-100; ratio 2-4) >= 70% but less than near occlusion: PSV greater than 230 (EDV > 100; ratio> 4.0) Near Occlusion: PSV that is variable; markedly narrowed lumen Occlusion: Absent flow on color/spectral Doppler and no lumen on granger scale. COMPARISON: None. FINDINGS: RIGHT: The right common carotid artery (CCA) peak systolic velocity (PSV) is 74 cm/s. The right internal car otid artery (ICA) PSV is 90 cm/s. The right ICA end-diastolic velocity (EDV) is 35 cm/s. The right IC A/CCA PSV ratio is 1.2. The external carotid artery (ECA) PSV is 96 cm/s. There is antegrade flow in the right vertebral artery. LEFT: The left CCA PSV is 133 cm/s. The left ICA PSV is 96 cm/s. The left ICA EDV is 37 cm/s. The left ICA/ CCA PSV ratio is 0.7. The ECA PSV is 114 cm/s. There is antegrade flow in the left vertebral artery. IMPRESSION: 1. Less than 50% stenosis in the right internal carotid artery by sonographic criteria. 2. Less than 50% stenosis in the left internal carotid artery by sonographic criteria. Reviewed, dictated and finalized at location A. RALIAN RULES FOOTBALLER IMPRESSION: 1. Less than 50% stenosis in the right internal carotid artery by sonographic ramonita guerin. 2. Less than 50% stenosis in the left internal carotid artery by sonographic monica mcwilliams.
--- NOTE | ~2021-02-05 | US_ITS ---
EXAMINATION: US art doppler w press UE BI DATE: 02/05/2021 10:46 INDICATION: Peripheral vascular disease, unspecified. TECHNIQUE: Segmental pressures and plethysmographic and Doppler waveforms of the upper extremity leo abbie were obtained. COMPARISON: None. FINDINGS: Right and left brachial artery pressures of 152 mm Hg and 159 mm Hg, respectively, are concordant (no rmal difference <= 30 mmHg). The right finger:brachial systolic pressure ratio is 1.13 (normal > 0.8) . Segmental pressure gradients are normal. Arterial Doppler waveforms are normal (normal upstroke < 0 .2 s). The left finger:brachial systolic pressure ratio is 1.11. Segmental pressure gradients are normal. Ar terial Doppler waveforms are normal. IMPRESSION: 1. No significant arterial occlusive disease. Reviewed, dictated and finalized at location A. FILE OPERATOR
== END 2021-02-05 08:15 | disposition home or self-care (01) ==
LOC: ANHIMG 08:19
PROVIDERS: PCP Family Medicine; Visit Provider Family Medicine
DX: I73.9 Peripheral vascular disease, unspecified (principal); I65.23 Occlusion and stenosis of bilateral carotid arteries
CPT/HCPCS: 93880; 93923

== ENCOUNTER 2021-06-16 07:34 | Outpatient (CLI) | payer OTHER, SELFPAY ==
--- NOTE | 2021-06-22 17:44 | WPDSLEEPSTUD ---
Sleep Study Date of Study: 06/16/21 Ordering Provider: Eric Bee APRN Interpreting Physician: Brittney Crockett MD Sleep Study Type: Split Polysomnogram Height: 1.7 m Weight: 131.542 kg Body Mass Index: 45.4 Neck Circumference (inches): 20 [place]: 8 Reason for Sleep Study Hypersomnolence, insomnia, poor quality sleep Sleep History Martin Faye is a 61-year-old man who has had problems with poor quality sleep. She has periodic difficulty falling asleep as well as waking throughout the night including the early childhood worker. He has excessive daytime sleepiness. He frequently awakens from sleep feeling short of breath. He does not awaken at night with heartburn, belching or coughing. He occasionally snores, occasionally loudly enough that others complain about it. He occasionally has trouble sleeping with a cold. He rarely wakes up gasping for breath at night. He frequently has breathing problems at night observed by others. He rarely sweats excessively night. He rarely notices his heart pounding or beating irregularly at night. He rarely falls asleep during the day, occasionally falls asleep involuntarily, rarely falls asleep while driving. He does not have loss of muscle tone with strong emotion. He rarely has daytime difficulties due to excessive sleepiness. he rarely feels paralyzed on waking or falling asleep. He rarely has vivid dreamlike scenes upon awakening or falling asleep. Does not feel afraid to go to sleep. He rarely has nightmares. He occasionally remembers his dreams. Frequently has racing thoughts. He rarely feels sad or depressed. He frequently has anxiety. He occasionally has muscular tension. He does not notice parts of his body jerking and he does not kick at night. He does not have crawling and aching feelings in his legs. He rarely has any kind of leg pain at night. He does not have morning jaw pain. He rarely grinds his teeth during sleep. He occasionally is bothered by pain during the day. He rarely is awakened by pain at night. He occasionally wakes up feeling stiff in the morning. He rarely wakes up with sore or achy muscles. He rarely wakes up with pain in the neck and spine. He has fatigue, memory problems, concentration difficulties and insomnia. Normal bedtime is between 11:00 p.m. and 12 midnight, taking 15 minutes to fall asleep, typically waking 1-2 times at night for 10 minutes. Awakenings occur in the middle of the night. He wakes in the morning by 4:00 or 5:00 a.m.. Weekend schedule is the same. He stays in bed 5 minutes after waking. He does not take naps in the afternoon or evening. A short nap is not refreshing. He is usually drowsy in the morning for 3 hours or longer. Habits: Tobacco stopped 2.5 months ago. Caffeine, 3 cups of coffee and 2 servings of tea daily. No alcohol or recreational drugs. FORMERLY [facility] Past Medical History Medical History Allergies Arthritis Atherosclerotic heart disease of [place] coronary artery without angina pectoris CAD (coronary artery disease) Chest pain Chronic midline low back pain with bilateral sciatica Diastolic dysfunction grade 2 diastolic dysfunction with ejection fraction 41% on echocardiogram Elevated blood sugar Encounter for prostate cancer screening Essential hypertension History of DVT (deep vein thrombosis) 2008, treated with blood thinners Hypersomnia Hypertension Hypothyroidism, unspecified (05/25/21) TSH elevated at 6.65 on 05/25/2021 Mixed hyperlipidemia total cholesterol 128, triglycerides 216, HDL 33, LDL 67 on 05/25/2021 Morbid obesity Peripheral vascular disease (02/05/21) Carotid Doppler study on 02/05/2021 was normal at less than 50% blockage. Arterial Doppler study of the lower extremities normal on the right with ALEJANDRINA of 1.0 and mildly abnormal on the left with ALEJANDRINA of 0.88 and TBI 0.74. Arterial Doppler study of the upper extremities was normal Psoriasis U
[2021-06-22 18:25] VITALS: BMI 45.4
== END 2021-06-17 05:36 | disposition home or self-care (01) ==
LOC: ANHCSM 07:48
PROVIDERS: PCP Family Medicine; Visit Provider Nurse Practitioner Family
DX: G47.9 Sleep disorder, unspecified (principal); R06.83 Snoring; G47.33 Obstructive sleep apnea (adult) (pediatric)
CPT/HCPCS: 95811

== ENCOUNTER → 2024-12-19 11:48 | Outpatient (CLI) | payer MEDICARE, SELFPAY ==
--- NOTE | ~2024-12-19 | XR_ITS ---
EXAMINATION: XR hip LT min 2V, 12/19/2024 11:58 CDT HISTORY: M25.552 - Pain in left hip COMPARISON: No comparisons available. Findings: No acute fracture or malalignment. No significant degenerative changes. Soft tissues unremarkable. Impression: No acute fracture or malalignment. Reviewed, dictated and finalized at location P. Impression: No acute fracture or malalignment.
--- NOTE | ~2024-12-19 | XR_ITS ---
XR lumbar spine min 4V Indication: M54.50 - Low back pain, unspecified Comparison: None Findings: Moderate loss of vertebral height throughout with grade 1 anterolisthesis of L5 on S1 and grade 1 retrolisthesis of L2 on L3, no acute fracture. Moderate to severe loss of disc height throughout, there are bilateral spondylolytic defects noted at L5. Soft tissues unremarkable Impression: No acute abnormality. Reviewed, dictated and finalized at location A. Impression: No acute abnormality.
--- OUTSIDE RECORDS SUMMARY | 2024-12-19 14:22 | XMS_ITS | Clinical Summary ---
Author Organization [facility] Address [address] [place] [id number] Care Team Providers Care Lead Python Developer Name Role Phone Unavailable Primary Care Provider Unavailabl e Social History Tobacco Use Types Packs/Day Years Used Date Smoking Tobacco: Never Assessed Sex and Gender Information Value Date Recorded Sex Assigned at Not on file Legal Sex Male 9:22 AM CDT Gender Identity Not on file Sexual Orientation Not on file Plan of Treatment Upcoming Encounters Date Type Department Care Team (Late st Contact Info) Description 05/08/2025 9:20 AM CHIEF DESIGN BRANCH Office Visit [facility] [address] [place] [address] Angel Newberry MD [address] [place] [address] Health Maintenance Due Date Last Done Comments Colorectal Cancer Screening Colonoscopy (10 Years) 1959 Hepatitis C 1977 DTaP, Tdap and Td Vaccines ( 1 - Tdap) 1978 Pneumococcal Vaccine: 50+ Ye ars (1 of 1 - PCV) 2009 Zoster Vaccines (1 of 2) 2009 COVID-19 Vaccine ( - 2023-2 5 season) 2024 RSV Immunization or 60+ Years (1 - 1-dose 75+ series) 2034 Meningococcal B Vaccine Aged Out No l onger eligible based on patient's age to complete this topic Meningococcal Vaccine Aged Out No mk durga eligible based on patient's age to complete this topic RSV Immunizations Under 20 Months Aged Out No longer eligible based on patient's age to complete this topic Insurance MEDICARE [facility] [facility]
--- OUTSIDE RECORDS SUMMARY | 2024-12-19 14:23 | XMS_ITS | Clinical Summary ---
Author Organization [facility] Address [address] [place] [address] Care Team Providers Care Continuous Yarn Dyeing Machine Operator Name Role Phone Kuldeep Stuart MD Unavailable Unavailable Mauro Gavin MD Primary Care Provider [phone] Source Comments [facility],non-owned Affiliates and Associated Physician Practices is amultiple site organization consisting of ambulatory clinics and hospital sitesin [place], [place], [place] and [place]. This disclosure is being madepursuant to the Care Everywhere program and may not contain all information available regarding this patient. Last updated 17.[facility] Allergies Active Allergy Reactions Criticality Noted Date Comments Penicillins Other 01/01/2021 Medications * Be aware that medications may not be up to date on this document. Alwaysverify current medications with the patient. metFORMIN ER 24hr (GLUCOPHAGE XR) 500 MG tablet Take 1 (one) tablet by mouth every evening 12/25/2020 Active nitroGLYCERIN (NITROSTAT) 0.4 MG tablet DISSOLVE 1 TABLET UNDER THE TONGUE EVERY 5 MINUTES NEEDED FOR CHEST PAIN 12/25/2020 Active levothyroxine (SYNTHROID) 50 MCG tablet Take 1 (one) tablet by mouth once daily 06/07/2021 Active eszopiclone (Lunesta) 2 MG tablet TAKE 1 TABLET BY MOUTH EVERY DAY AT BEDTIME NEEDED FOR INSOMNIA 11/22/2021 Active carvedilol (Coreg) 12.5 MG tablet Take 1 (one) tablet by mouth 2 times daily with morning and evening meal 180 tablet 4 05/25/2023 Active aspirin (Aspirin) 81 MG chew tablet Take 1 (one) tablet by mouth once daily 90 tablet 3 06/29/2023 Active losartan (Cozaar) 50 MG tablet Take 1 (one) tablet by mouth once daily 90 tablet 3 06/30/2023 Active atorvastatin (Lipitor) 80 MG tablet Take 1 (one) tablet by mouth once daily 90 tablet 3 07/12/2023 Active clopidogrel (plaVIX) 75 MG tablet Take 1 (one) tablet by mouth once daily 90 tablet 3 08/17/2023 Active furosemide (Lasix) 20 MG tablet Take 1 (one) tablet by mouth once daily 90 tablet 3 06/28/2024 06/29/19 26 Active Active Problems Problem Noted Date Diagnosed Date Ischemic cardiomyopathy, LVEF 40-45% 01/05/2021 SANTOS to OM1 in 11/2020. AUDITOR IN CHARGE of proximal RCA. 01/01 Asymptomatic PVD (peripheral vascular disease) 1 HTN (hypertension), benign 01/01/2021 Diabetes mellitus type 2, uncomplicated 01/02/20 21 Obesity due to excess calories 01/01/2021 History of deep vein thrombosis (DVT) of lower e xtremity 01/01/2021 Family History Medical History Relation Name Comments Cancer - Colon Father Diabetes - Type 1 Father Hypertension Father Cancer - Colon Mother Relation Name Status Comments Father Mother Social History Tobacco Use Types Packs/Day Years Used Date Smoking Tobacco: Former Cigarettes Smokeless Tobacco: Never Tobacco Cessation:Counseling Given: Not Answered Alcohol Use Standard Drinks/Week Comments Not Currently 0 (1 standard drink = 0.6 oz pur e alcohol) Sex and Gender Information Value Date Recorded Sex Assigned at Male 10/11/2021 10:34 AM CDT Legal Sex Male 11:25 AM CDT Gender Identity Male 10/11/2021 10:34 AM CDT Sexual Orientation Straight 10/11/2021 10 :34 AM CDT Last Filed Vital Signs Vital Sign Reading Time Taken Comments Blood Pressure 144/83 06/07/2023 11:14 AM CDT Pulse 72 06/07/2023 11:14 AM CDT Temperature - - Respiratory Rate - - Oxygen Saturation 97% 06/07/2023 11:14 AM CDT Inhaled Oxygen Concentration - - Weight 134.3 kg (296 lb) 06/07/2023 11:14 AM CDT Height 170.2 cm (5' 7) 06/07/2023 11:14 AM CDT Body Mass Index 46.36 06/07/2023 11:14 AM CDT Plan of Treatment Health Maintenance Due Date Last Done Comments COLOGUARD (AGES 45-75) - COL ON CA SCREENING 1959 COLON MONITORING 1959 COLONOSCOPY - COLON CA SCREENING 1959 CT COLONOGRAPHY - COLON CA SCREENING 1959 Colorectal Cancer Screening 1959 FIT - COLON CA SCREENING 1959 FLEX SIG - COLON CA SCREENING 1959 HIV SCREENING 1974 HEPATITIS C SCREENING 01/11/1977 DIABETES-SERUM CREATININE 1977 DTAP/TDAP/TD VACCINES (1 - Tdap) 1978 PNEUMOCOCCAL VACCINE 50+ (1 of 2 - PCV) 1978 ZOSTER VACCINE (1 of 2) 2009 Respiratory Syncytial Virus (RSV) Vaccine Pt: or over 60 yrs (1 - Risk 60-74 years 1-dose series) 2019 DIABETES RETINOPATHY SCREENING 01/01/2021 DIABETES-FOOT EXAM WITH MONOFILAMENT 01/01/2021 DIABETES-HGB A1C 01/01/2021 AAA SCREENING 01/17/2024 DEPRESSION SCREENING 03/27/2024 DIABETES - URINE PROTEIN SCREENING 03/27/2024 COVID-19 VACCINE (3 - 2024-2 6 season) 2024 07/14/2020, 06/16/2020 INFLUENZA VACCINE (#1) 2024 HEPATITIS B VACCINE Aged Out No longe r eligible based on patient's age to complete this topic HIB VACCINE Aged Out No longer eligi ble based on patient's age to complete this topic HPV VACCINE Aged Out No longer eligi ble based on patient's age to complete this topic MENINGOCOCCAL (Group B) VACCINE SHARED DECISION-MAKING Aged Out No longer eligible based on patient's age to complete this topic MENINGOCOCCAL GROUPS A/C/Y/W VACCINE Aged Out No longer eligible b ased on patient's age to complete this topic Insurance [facility] INDIVIDUAL EXCHANGE BENEFIT PLAN Care Teams Continuous Yarn Dyeing Machine Operator Relationship Specialty Start Date End Date Mauro Gavin MD [address] [facility] [address] [place] [address] PCP - General Family Medicine 01/01/21 Kuldeep Stuart MD Insect Control Inspector Cardiovascular Disease 01/01/21
--- OUTSIDE RECORDS SUMMARY | 2024-12-19 14:23 | XMS_ITS | Clinical Summary ---
Author Organization [facility] Address [address] [place] [address] Care Team Providers Care Inside Account Representative Name Role Phone Mauro Gavin MD Primary Care Provider [phone] Allergies Active Allergy Reactions Criticality Noted Date Comments Penicillins Medications cyclobenzaprine (FLEXERIL) 10 mg tablet Take 1 tablet (10 mg total) by mouth 2 (two) times a day as needed for muscle spasms 20 tablet 1 Active Additional Information Patient not taking.Reported on 07/03/2024 HYDROcodone-alvaro taminophen (NORCO) 5-325 mg per tabletIndicatio ns:Pain Take 1 tablet by mouth every 6 (six) hours as needed for pain for up to 9 doses 9 tablet 1 Active Additional Information Patient not taking.Reported on 07/03/2024 furosemide (LASIX) 20 mg tablet Take 1 tablet (20 mg total) by mouth daily 5 06/29/19 26 Active metFORMIN XR (GLUCOPHAGE XR) 500 mg 24 hr tablet Take 1 tablet (500 mg total) by mouth nightly Active clopidogreL (PLAVIX) 75 mg tablet Take 1 tablet (75 mg total) by mouth daily 4 Active hydroCHLOROthia zide (MICROZIDE) 12.5 mg capsule Take 1 capsule (12.5 mg total) by mouth daily 5 Active atorvastatin (LIPITOR) 80 mg tablet Take 1 tablet (80 mg total) by mouth daily Active levothyroxine (SYNTHROID) 50 mcg tablet Take 1 tablet (50 mcg total) by mouth daily Active aspirin 81 mg chewable tablet Take 1 tablet (81 mg total) by mouth daily Active losartan (COZAAR) 50 mg tablet Take 1 tablet (50 mg total) by mouth daily Active multivit-min/fe rrous fumarate (MULTI VITAMIN ORAL) Take by mouth Active Active Problems Problem Noted Date Diagnosed Date Bilateral impacted cerumen 07/08/2024 Assessment & Plan (07/08/2024 3:13 PM CDT): Removed Sensorineural hearing loss ( SNHL) of left ear with restricted hearing of right ear 07/03/2024 Assessment & Plan (07/08/2024 3:14 PM CDT): I reviewed his hearing test with him. I think a lot of his hearing loss is due to noise exposure. Especially gun shooting. He can probably benefit from hearing aids. He certainly would he were hearing protection was around loud noise. He understands. Post-nasal drip 07/03/2024 Assessment & Plan (07/08/2024 3:15 PM CDT): I suggested trying an antihistamine. I really do not have anything further to recommend. Sometimes a nasal spray such as Flonase can be helpful if it is used regularly. He understands. Surgical History Surgery Date Site/Laterality Comments KNEE SURGERY CARDIAC STENT PLACEMENT Medical History Medical History Date Comments DVT (deep venous thrombosis) Heart disease Heart attack (HCC) Hypertension HL (hearing loss) Tinnitus Sleep difficulties Family History Medical History Relation Name Comments Cancer Father Relation Name Status Comments Father Social History Tobacco Use Types Packs/Day Years Used Date Smoking Tobacco: Former Cigarettes Smokeless Tobacco: Never Alcohol Use Standard Drinks/Week Comments Not Currently 0 (1 standard drink = 0.6 oz pur e alcohol) Sex and Gender Information Value Date Recorded Sex Assigned at Not on file 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 Gender Identity Male 08/29/2024 3:33 PM CDT Sexual Orientation Straight 08/29/2024 3: 33 PM CDT Obstetrics History Last Filed Vital Signs Vital Sign Reading Time Taken Comments Blood Pressure 171/102 12/04/2020 4:04 PM CDT Pulse 97 12/04/2020 4:04 PM CDT Temperature 36.8 C (98.3 F) 12/04/2020 4:04 PM CDT Respiratory Rate 18 07/03/2024 10:00 AM CDT Oxygen Saturation 97% 12/04/2020 4:04 PM CDT Inhaled Oxygen Concentration - - Weight 131.5 kg (290 lb) 07/03/2024 10:00 AM CDT Height 170.2 cm (5' 7) 07/03/2024 10:00 AM CDT Body Mass Index 45.42 07/03/2024 10:00 AM CDT Plan of Treatment Health Maintenance Due Date Last Done Comments Colon Cancer Screening-Colonoscopy 1959 Depression Screening 1959 Fall Risk Assessment 1959 Hepatitis C Screening 1959 Prostate Cancer Screening-PSA 1959 DTaP/Tdap/Td Vaccine (1 - Tdap) 1970 Hepatitis B Screening 1977 Pneumococcal vaccine 65+ (1 of 1 - PCV) 2009 Zoster Vaccine (1 of 2) 2009 Abdominal Aortic Aneurysm (AAA) Screen 01/17/2024 Well Visit 65+ 01/17/2024 Covid-19 Vaccine ( season) 2024, 06/16/2020 Influenza Vaccine (#1) 2024 Insurance [facility] MEDICARE [facility] Care Teams Inside Account Representative Relationship Specialty Start Date End Date Mauro Gavin MD [address] [address] PCP - General Family Medicine 06/19/24
== END ==
LOC: EXPTRAD 11:50
PROVIDERS: PCP Nurse Practitioner Family; Visit Provider Nurse Practitioner Family
DX: M54.50 Low back pain, unspecified (principal); M25.552 Pain in left hip
CPT/HCPCS: 72110; 73502